=== PATIENT | female | born 1985 ===

== ENCOUNTER → 2017-04-23 | Outpatient (CLI) | payer SELFPAY ==
--- NOTE | 2017-04-24 10:06 | DIAGNOSTIC IMAGING REPORT ---
PROCEDURE: US COMPLETE PELVIC W/TRANSVAG INDICATION: ABDOMINAL BLOATING TECHNIQUE: Transabdominal and endovaginal roper scale and color Doppler sonographic images of the female pelvis were obtained. [employer] A (US). COMPARISON: None. FINDINGS: TRANSABDOMINAL SCANS: There is marked enlargement of the uterus (12 cm x 11.5 x 10.0 cm) secondary to a large posterior subserosal fibroid (11.3 x 8.0 x 9.4 cm). Uterine volume is estimated at 438 cc. TRANSVAGINAL SCANS: Endometrium lining is displaced ventrally by the large fibroid, but is of normal thickness (4 mm). Ovaries are not visualized. IMPRESSION: 1. Moderate to marked enlargement the uterus secondary to a large posterior subserosal mass (11.3 x 8.0 x 9.4 cm). Findings are most compatible with a large subserosal leiomyoma (i.e. benign fibroid). Malignant fibroid neoplasm (e.g., leiomyosarcoma) is considered less likely, although still a possibility. Solid ovarian mass/neoplasm is considered less likely. 2. Ovaries are not visualized (most likely due to uterine enlargement). 3. Findings discussed with an PHILIPPE Logan.
== END ==
LOC: US SRH 14:41
DX: N85.2 Hypertrophy of uterus (principal); N85.9 Noninflammatory disorder of uterus, unspecified